=== PATIENT | female | born 1940 | race Caucasian/White ===

== ENCOUNTER 2017-04-02 05:53 | Inpatient (IN) ==
[2017-04-02] MEDS ORDERED: 0.9 % Sodium Chloride 1,000 ML IVC ONE (06:31)
--- NOTE | 2017-04-02 06:31 | Emergency Department Note ---
Disposition Clinical Impression: Hyponatremia Pneumonia Qualifiers: Pneumonia type: due to unspecified organism Laterality: left Lung location: unspecified part of lung Qualified Code(s): J18.9 - Pneumonia, unspecified organism Disposition: Admitted As Inpatient Condition: Fair General Adult HPI - General Chief complaint: ED General Medical Stated complaint: ill Time Seen by Provider: 04/02/17 06:19 Source: patient Mode of arrival: private vehicle Limitations: no limitations Nursing Notes Reviewed: Yes Vital Signs Reviewed: Yes - History of Present Illness Pt Subjective Complaint: cough, fever, diarrhea, malaise Onset (ago): week(s) (1) Location: other ("Everything hurts") Radiation: non-radiation Pain Severity: mild Pain Scale: 4 Quality: aching Consistency: constant Improves with: nothing Worsens with: nothing Associated symptoms: Reports: cough, malaise. Denies: confusion, chest pain, diaphoresis, nausea/vomiting Treatments Prior to Arrival: none - Related Data Home Medications Medication Instructions Recorded Confirmed Bisoprolol/HCTZ 5/6.25 [Ziac 1 tab PO DAILY 04/02/17 04/02/17 5/6.25] Ciprofloxacin HCl [Cipro] 250 mg PO DAILY 04/02/17 04/02/17 Gabapentin [Neurontin] 3 cap PO HS 04/02/17 04/02/17 Gabapentin [Neurontin] 100 mg PO QAM 04/02/17 04/02/17 HYDROcodone/Acet 5/325 mg [[place] 1 tab PO 6XD PRN 04/02/17 04/02/17 5-325 mg] Nitrofurantoin Monohyd/M-Cryst 100 mg PO BID 04/02/17 04/02/17 [Macrobid 100 mg Capsule] Oxybutynin Chloride [Ditropan Xl] 10 mg PO DAILY 04/02/17 04/02/17 Pioglitazone [Actos] 15 mg PO DAILY 04/02/17 04/02/17 Allergies Allergy/AdvReac Type Severity Reaction Status Date / Time Penicillins Allergy Itching Verified 04/02/17 05:54 All systems ED: reviewed and negative except as stated. Review of Systems: As Per HPI Constitutional: Reports: fever, chills, weakness. Denies: weight change, night sweats Eyes: Denies: eye pain, eye discharge, vision change ENT ED: Denies: ear pain, throat pain, congestion, dysphagia Cardiovascular: Reports: dyspnea on exertion. Denies: chest pain, palpitations , orthopnea, edema, syncope Respiratory: Reports: as per HPI, cough, wheezes, sputum production. Denies: dyspnea, hemoptysis, stridor Gastrointestinal: Reports: diarrhea (once or twice daily - no blood, no melena) . Denies: abdominal pain, nausea, vomiting Genitourinary: Denies: urgency, dysuria, frequency, hematuria Musculoskeletal: Reports: as per HPI, arthralgia Integumentary: Denies: rash Neurological: Reports: as per HPI, headache (dull, frontal, non-radiating, not first headache of life, similar to other headaches, gradual in onset.). Denies : weakness, numbness, paresthesias, confusion, abnormal gait, vertigo Hematological/Lymphatic: Denies: easy bleeding, easy bruising Past Medical History - Past Medical History Attestation: Yes The following information was validated with the patient. Source: patient Medical history: Reports: diabetes, hyperlipidemia, hypertension Surgical history: Reports: non-contributory Psychiatric history: Reports: no psych history - Social History Smoking Status: Former smoker Smokeless Tobacco Status: No Alcohol use: Reports: none Drug use: Reports: none Physical Exam - General Limitations: no limitations General appearance: alert, in no apparent distress - Head Head exam: atraumatic, normocephalic, normal inspection - Eye Eye exam: Present: normal appearance, PERRL. Absent: scleral icterus, conjunctival injection, periorbital swelling - ENT ENT exam: mucous membranes dry - Neck Neck exam: Present: normal inspection, full ROM, trachea midline. Absent: meningismus - Chest Chest inspection: Present: normal inspection - Respiratory Respiratory exam: Present: wheezes. Absent: respiratory distress, stridor, accessory muscle use, prolonged expiratory phase - Expanded Respiratory Exam Location: wheezes: Left, Right, Upper, decreased breath sounds: Upper, Left, Right - Cardiovascular Cardiovascular exam: Present: regular rate, normal rhythm, normal heart sounds - Extremities Exam Extremities exam: Present: normal inspection, full ROM, normal capillary refill. Absent: pedal edema - Expanded Lower Extremity Exam Gait: observed and normal - Back Exam Back exam: Present: normal inspection - Neurological Exam Neurological exam: Present: alert, oriented X3, CN II-XII intact, normal gait - Psychiatric Psychiatric exam: Present: normal affect, normal mood - Skin Skin exam: Present: warm, dry, intact, normal color Course Course Narrative: PAtient presents from the floor as she has been staying with her . He was admitted last week for complications of the flu. She states that she has had fever, cough and has been feeling poorly since last . She denies chest pain, hemoptysis, rash, vomiting or abdominal pain. She appears uncomfortable but non-toxic. BP is low normal. Heart rate high normal. She is hypoxic on room air at 92%. CXR shows retro-cardiac abnormality concerning for pneumonia. Patient has been staying here with her but has not been in a hospital as a patient in the last 3 months. She has not had IV ABX recently. She has a normal lactate, but has been tachy - up to 103, and hypotensive 98 systolic. She also has an elevated WBC count. Will admit. ABX ordered. Vital Signs Temperature 99.6 F 04/02/17 05:56 Pulse Rate 96 04/02/17 05:56 Respiratory Rate 16 04/02/17 05:56 Blood Pressure 100/54 04/02/17 05:56 O2 Sat by Pulse Oximetry 92 04/02/17 05:56 Temperature 97.6 F 04/02/17 16:31 Pulse Rate 64 04/02/17 16:31 Respiratory Rate 15 04/02/17 16:31 Blood Pressure 104/69 04/02/17 16:31 O2 Sat by Pulse Oximetry 92 04/02/17 16:31 Oxygen Delivery Oxygen Delivery Nasal Cannula Medical Decision Making - Medical Records Medical records reviewed: Yes I reviewed the patient's medical records. - Lab Data Lab results reviewed: Yes I reviewed the patient's lab results. Lab results narrative: Laboratory Last Values WBC 13.5 K/mcL (4.3-11.1) H 04/02/17 06:43 RBC 3.62 M/mcL (3.82-4.97) L 04/02/17 06:43 Hgb 11.8 g/dL (11.5-15.4) 04/02/17 06:43 Hct 34.4 % (35.3-44.9) L 04/02/17 06:43 MCV 95.0 fL (83.0-100.0) 04/02/17 06:43 MCH 32.6 pg (28.0-33.3) 04/02/17 06:43 MCHC 34.3 g/dL (31.6-35.5) 04/02/17 06:43 RDW 13.0 % (11.5-14.5) 04/02/17 06:43 Plt Count 113 K/mcL (140-400) L 04/02/17 06:43 MPV 9.3 fL (9.4-12.4) L 04/02/17 06:43 Immature Gran % 0.7 % (0-4) 04/02/17 06:43 Seg Neutrophils % 85.0 % 04/02/17 06:43 Lymphocytes % 5.0 % 04/02/17 06:43 Monocytes % 9.1 % 04/02/17 06:43 Eosinophils % 0.0 % 04/02/17 06:43 Basophils % 0.2 % 04/02/17 06:43 Neutrophils # 11.4 K/mcL (1.6-8.9) H 04/02/17 06:43 Lymphocytes # 0.7 K/mcL (0.6-4.6) 04/02/17 06:43 Monocytes # 1.2 K/mcL (0.0-1.3) 04/02/17 06:43 Eosinophils # 0.0 K/mcL (0.0-0.6) 04/02/17 06:43 Basophils # 0.0 K/mcL (0.0-0.2) 04/02/17 06:43 Sodium 132 mEq/L (136-145) L 04/02/17 06:43 Potassium 3.3 mEq/L (3.5-5.1) L 04/02/17 06:43 Chloride 98 mEq/L (98-107) 04/02/17 06:43 Carbon Dioxide 25 mEq/L (23-29) 04/02/17 06:43 BUN 19 mg/dL (8-23) 04/02/17 06:43 Creatinine 1.14 mg/dL (0.60-1.20) 04/02/17 06:43 Est GFR ( Amer) 56 (> 60) L 04/02/17 06:43 Est GFR (Non-Af Amer) 46 (> 60) L 04/02/17 06:43 BUN/Creatinine Ratio 17 (6-26) 04/02/17 06:43 Glucose 236 mg/dL (70-105) H 04/02/17 06:43 Calculated Osmolality 284 (280-300) 04/02/17 06:43 Lactic Acid 1.3 mmol/L (0.5-2.2) 04/02/17 06:43 Calcium 8.6 mg/dL (8.6-10.3) 04/02/17 06:43 Urine Color Yellow (Yellow) 04/02/17 07:02 Urine Clarity Cloudy (Clear) A 04/02/17 07:02 Urine pH 6.0 pH Units (5.0-8.0) 04/02/17 07:02 Ur Specific [place] 1.018 (1.010-1.025) 04/02/17 07:02 Urine Protein 100 mg/dL (Neg-Trace) H 04/02/17 07:02 Urine Glucose (UA) Normal mg/dL (Normal) 04/02/17 07:02 Urine Ketones Negative mg/dL (Negative) 04/02/17 07:02 Urine Blood Large (Negative) H 04/02/17 07:02 Urine Nitrite Negative (Negative) 04/02/17 07:02 Urine Bilirubin Negative (Negative) 04/02/17 07:02 Urine Urobilinogen Normal mg/dL (Normal) 04/02/17 07:02 Ur Leukocyte Esterase Large (Negative) H 04/02/17 07:02 Urine Microscopic RBC 15-30 per hpf (0-3) H 04/02/17 07:02 Urine Microscopic WBC TNTC per hpf (0-3) H 04/02/17 07:02 Ur Squamous Epith Cells Many per lpf (None-Few) H 04/02/17 07:02 Urine Bacteria Few per hpf (None-Few) 04/02/17 07:02 Hyaline Casts None Seen per lpf (None-Few) 04/02/17 07:02 Ur Culture Indicated? NO. (NO) 04/02/17 07:02 Result diagrams: 04/02/17 06:43 04/02/17 06:43 Lab Results 04/02/17 04/02/17 04/02/17 Range/Units 06:43 06:43 06:43 WBC 13.5 H (4.3-11.1) K/mcL RBC 3.62 L (3.82-4.97) M/mcL Hgb 11.8 (11.5-15.4) g/dL Hct 34.4 L (35.3-44.9) % MCV 95.0 (83.0-100.0) fL MCH 32.6 (28.0-33.3) pg MCHC 34.3 (31.6-35.5) g/dL RDW 13.0 (11.5-14.5) % Plt Count 113 L (140-400) K/mcL MPV 9.3 L (9.4-12.4) fL Immature Gran % 0.7 (0-4) % Seg Neutrophils % 85.0 % Lymphocytes % 5.0 % Monocytes % 9.1 % Eosinophils % 0.0 % Basophils % 0.2 % Neutrophils # 11.4 H (1.6-8.9) K/mcL Lymphocytes # 0.7 (0.6-4.6) K/mcL Monocytes # 1.2 (0.0-1.3) K/mcL Eosinophils # 0.0 (0.0-0.6) K/mcL Basophils # 0.0 (0.0-0.2) K/mcL Sodium 132 L (136-145) mEq/L Potassium 3.3 L (3.5-5.1) mEq/L Chloride 98 (98-107) mEq/L Carbon Dioxide 25 (23-29) mEq/L BUN 19 (8-23) mg/dL Creatinine 1.14 (0.60-1.20) mg/dL Est GFR ( Amer) 56 L (> 60) Est GFR (Non-Af Amer) 46 L (> 60) BUN/Creatinine Ratio 17 (6-26) Glucose 236 H (70-105) mg/dL Calculated Osmolality 284 (280-300) Lactic Acid 1.3 (0.5-2.2) mmol/L Calcium 8.6 (8.6-10.3) mg/dL Urine Color (Yellow) Urine Clarity (Clear) Urine pH (5.0-8.0) pH Units Ur Specific [place] (1.010-1.025) Urine Protein (Neg-Trace) mg/dL Urine Glucose (UA) (Normal) mg/dL Urine Ketones (Negative) mg/dL Urine Blood (Negative) Urine Nitrite (Negative) Urine Bilirubin (Negative) Urine Urobilinogen (Normal) mg/dL Ur Leukocyte Esterase (Negative) Urine Microscopic RBC (0-3) per hpf Urine Microscopic WBC (0-3) per hpf Ur Squamous Epith Cells (None-Few) per lpf Urine Bacteria (None-Few) per hpf Hyaline Casts (None-Few) per lpf Ur Culture Indicated? (NO) 04/02/17 Range/Units 07:02 WBC (4.3-11.1) K/mcL RBC (3.82-4.97) M/mcL Hgb (11.5-15.4) g/dL Hct (35.3-44.9) % MCV (83.0-100.0) fL MCH (28.0-33.3) pg MCHC (31.6-35.5) g/dL RDW (11.5-14.5) % Plt Count (140-400) K/mcL MPV (9.4-12.4) fL Immature Gran % (0-4) % Seg Neutrophils % % Lymphocytes % % Monocytes % % Eosinophils % % Basophils % % Neutrophils # (1.6-8.9) K/mcL Lymphocytes # (0.6-4.6) K/mcL Monocytes # (0.0-1.3) K/mcL Eosinophils # (0.0-0.6) K/mcL Basophils # (0.0-0.2) K/mcL Sodium (136-145) mEq/L Potassium (3.5-5.1) mEq/L Chloride (98-107) mEq/L Carbon Dioxide (23-29) mEq/L BUN (8-23) mg/dL Creatinine (0.60-1.20) mg/dL Est GFR ( Amer) (> 60) Est GFR (Non-Af Amer) (> 60) BUN/Creatinine Ratio (6-26) Glucose (70-105) mg/dL Calculated Osmolality (280-300) Lactic Acid (0.5-2.2) mmol/L Calcium (8.6-10.3) mg/dL Urine Color Yellow (Yellow) Urine Clarity Cloudy A (Clear) Urine pH 6.0 (5.0-8.0) pH Units Ur Specific [place] 1.018 (1.010-1.025) Urine Protein 100 H (Neg-Trace) mg/dL Urine Glucose (UA) Normal (Normal) mg/dL Urine Ketones Negative (Negative) mg/dL Urine Blood Large H (Negative) Urine Nitrite Negative (Negative) Urine Bilirubin Negative (Negative) Urine Urobilinogen Normal (Normal) mg/dL Ur Leukocyte Esterase Large H (Negative) Urine Microscopic RBC 15-30 H (0-3) per hpf Urine Microscopic WBC TNTC H (0-3) per hpf Ur Squamous Epith Cells Many H (None-Few) per lpf Urine Bacteria Few (None-Few) per hpf Hyaline Casts None Seen (None-Few) per lpf Ur Culture Indicated? NO. (NO) - Radiology Data Radiology results reviewed: Yes I reviewed the patient's radiology results. Chest X-Ray 04/02/17 06:32 IMPRESSION: 1. Retrocardiac opacity. In the proper clinical setting, this may represent pneumonia. 2. Mild enlargement of the cardiac silhouette. D/ / Frederick Valenzuela MD / Frederick Valenzuela MD Interpreting Provider: Frederick Valenzuela MD - EKG Data EKG #1 EKG attestation: Yes I reviewed and interpreted this EKG. EKG shows normal: sinus rhythm Rate: normal Rhythm: PAC's Voltage: increased voltage throughout, c/w LVH When compared to previous EKG there are: previous EKG unavailable Interpretation: nonspecific ST-T wave changes
[2017-04-02 06:52] LABS: Basophils % 0.2 %; Hematocrit 34.4 % (35.3-44.9); Hemoglobin 11.8 g/dL (11.5-15.4); Immature Granulocytes % 0.7 % (0-4); Lymphocytes # 0.7 K/mcL (0.6-4.6); Mean Corpuscular HGB Conc 34.3 g/dL (31.6-35.5); Mean Corpuscular Hemoglobin 32.6 pg (28.0-33.3); Mean Platelet Volume 9.3 fL (9.4-12.4); Monocytes # 1.2 K/mcL (0.0-1.3); Monocytes % 9.1 %; Neutrophils # 11.4 K/mcL (1.6-8.9); Platelet Count 113 K/mcL (140-400); Red Blood Count 3.62 M/mcL (3.82-4.97)
[2017-04-02] MEDS ORDERED: Ipratropium/Albuterol Neb 3 ML IH ONE (06:54)
[2017-04-02 07:05] LABS: Calcium 8.6 mg/dL (8.6-10.3); Potassium 3.3 mEq/L (3.5-5.1)
[2017-04-02 07:21] LABS: Bilirubin,Urine Negative (Negative); Blood,Urine Large (Negative); Clarity,Urine Cloudy (Clear); Color,Urine Yellow (Yellow); Glucose,Urine (UA) Normal (Normal); Ketones,Urine Negative (Negative); Leukocyte Esterase,Urine Large (Negative); Nitrite,Urine Negative (Negative); Protein,Urine 100 mg/dL (Neg-Trace); Specific Gravity,Urine 1.018 (1.010-1.025); Urobilinogen,Urine Normal (Normal)
[2017-04-02 07:25] LABS: Bacteria,Urine Few per hpf (None-Few); Hyaline Casts,Urine None Seen per lpf (None-Few); RBC,Urine 15-30 per hpf (0-3); Squamous Epithelial Cell,Urine Many per lpf (None-Few); WBC,Urine TNTC per hpf (0-3)
[2017-04-02] MEDS ORDERED: Vancomycin 1,250 MG in D5% in Water 250 ML IVPB ONE (08:03)
[2017-04-02] MEDS ORDERED: Levofloxacin 750 MG/150 ML 750 MG/150 ML BAG IVPB ONE (08:03)
[2017-04-02] MEDS ORDERED: Cefepime HCl 2,000 MG in D5% in Water (Mini-Bag+) 100 ML IVPB ONE (08:16)
[2017-04-02] MEDS ORDERED: Naloxone 0.4 MG/ML INJ IVP PRN (08:29)
[2017-04-02] MEDS ORDERED: Ondansetron 4 MG/2 ML VIAL IVP PRN (08:29)
[2017-04-02] MEDS ORDERED: Acetaminophen 325 MG TABLET PO PRN (08:29)
[2017-04-02] MEDS ORDERED: 0.9 % Sodium Chloride 1,000 ML IVC SCH (08:30)
[2017-04-02] MEDS ORDERED: Cefepime HCl 2,000 MG in Water for inj. (sterile) 20 ML 20 ML IVPB ONE (08:30)
[2017-04-02] MEDS ORDERED: Dextrose Gel 15 GM/37.5 ML TUBE PO PRN ×2 (08:31)
[2017-04-02] MEDS ORDERED: *HR* Dextrose 50 % in Water (Syg) 50 ML SYRINGE IVP PRN (08:31)
[2017-04-02] MEDS ORDERED: D5% in Water 1,000 ML IVC PRN (08:31)
--- NOTE | 2017-04-02 08:56 | Internal Med History&Physical ---
Date of Encounter: 04/02/17 Time of Encounter: 08:53 Assessment and Plan (1) Sepsis Current visit: Yes Status: Acute Patient presented with tachycardia, tachypnea, leukocytosis of 13.5, and a chest x-ray with retrocardiac opacity. Suggestive of pneumonia. No personal recent hospitalization in the past 90 days, patient lives at home. She has been visiting her who is currently hospitalized at this facility. We will treat as community-acquired pneumonia. Source of sepsis is pneumonia for now. Urine analysis is dirty, has been sent for culture, will follow. Follow blood culture. Send sputum culture Send Legionella antigen and streptococcal antigen Patient received vancomycin in the ER. We will continue with Levaquin 750 mg intravenously daily for now. Lactic acid is normal on blood pressure is within normal limits. Continue support with gentle hydration. Qualifiers: Sepsis type: sepsis due to unspecified organism Qualified Code(s): A41.9 - Sepsis, unspecified organism (2) Pneumonia Current visit: Yes Status: Acute As above. Qualifiers: Pneumonia type: due to unspecified organism Laterality: left Lung location: unspecified part of lung Qualified Code(s): J18.9 - Pneumonia, unspecified organism (3) HTN (hypertension) Current visit: Yes Status: Chronic Resume home medications. Qualifiers: Hypertension type: essential hypertension Qualified Code(s): I10 - Essential (primary) hypertension (4) Diabetes mellitus Current visit: Yes Status: Chronic Insulin naive. On oral agents at home. Diabetic diet. Check fingersticks before meals and at bedtime. Sliding scale insulin. Goal Fingerstick is 140-180. Check A1c with morning labs. 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 (6) Hyponatremia Current visit: Yes Status: Acute Pseudohyponatremia. Corrected sodium is 131 for hyper glycemia.. This is patient's baseline on the trend of her chem. Continue to monitor. (7) Diarrhea Current visit: Yes Status: Acute Send stool panel Qualifiers: Diarrhea type: unspecified type Qualified Code(s): R19.7 - Diarrhea, unspecified (8) Hypokalemia Current visit: Yes Status: Acute Possibly due to GI loss from diarrhea, and diuretic use at home. Replaced orally. Continue to monitor. Internal Medicine - H&P: HPI Chief complaint: Diarrhea, cough Admitted From: Home Plans for Post Hospital Care: Home History of present illness: Ms. Cordero is a 76 year old female with medical history of hypertension, and diabetes mellitus, degenerative joint disease and neuropathy who presented with complaints of cough and weakness for the past 1 week, and diarrhea of 2 days. The patient was in her usual state of health until she started taking care of her who is currently hospitalized at this facility and developed weakness and tiredness over the past week, she also reports cough productive of sputum, associated with mildly. No fever or chills. No sick contacts. She also reports associated bilateral ear pain or ear discharge. No sore throat. No rhinorrhea. No recent travels. She denies lower extremity swelling, no chest pain. She developed diarrhea 2 days ago started to be watery nonbloody nonmucoid. She has had 3 episodes of diarrhea in the past 24 hours. She denies nausea vomiting. She also feels she might have a urinary tract infection. She has no neurologic symptoms at this time. No sore throat. No skin rash. Past Med Surg Social Fam HX - Past Medical History Medical history: diabetes, hyperlipidemia, hypertension Psychiatric history: no psych history - Social History Smoking Status: Former smoker Smokeless Tobacco Status: No Alcohol use: none Drug use: none Internal Medicine - H&P: Meds Bisoprolol/HCTZ 5/6.25 [Ziac 5/6.25] 1 tab PO DAILY 04/02/17 [History] Ciprofloxacin HCl [Cipro] 250 mg PO DAILY 04/02/17 [History] Gabapentin [Gralise] 900 mg PO HS 04/02/17 [History] Gabapentin [Neurontin] 300 mg PO BID 04/02/17 [History] HYDROcodone/Acet 5/325 mg [[place] 5-325 mg] 1 tab PO 6XD PRN 04/02/17 [History] Nitrofurantoin Monohyd/M-Cryst [Macrobid 100 mg Capsule] 100 mg PO BID 04/02/17 [History] Oxybutynin Chloride [Ditropan Xl] 10 mg PO DAILY 04/02/17 [History] Pioglitazone [Actos] 15 mg PO DAILY 04/02/17 [History] 3 Allergy/AdvReac Type Severity Reaction Status Date / Time Penicillins Allergy Itching Verified 04/02/17 05:54 All Systems PM: A 10-system review of systems was performed and is negative for pertinent findings except as documented above in the HPI. - Constitutional Constitutional: fatigue, lethargy, malaise - EENT Ears: ear pain Nose, mouth and throat: no dysphagia, no nasal discharge, no neck pain, no sore throat - Cardiovascular Cardiovascular ROS IM: no chest pain, no diaphoresis, no dyspnea, no lightheadedness, no palpitations, no syncope - Respiratory Respiratory: cough, dyspnea, chest congestion, no hemoptysis, no pain on inspiration - Gastrointestinal Gastrointestinal: change in bowel habits, diarrhea, no hematemesis, no hematochezia, no nausea, no vomiting - Genitourinary Genitourinary: no change in urinary stream, no dysuria, no flank pain, no hematuria - Musculoskeletal Musculoskeletal ROS IM: back pain - Integumentary Integumentary IM: no rash, no unusual bruising - Neurological Neurological ROS: no confusion, no convulsions, no focal weakness, no numbness, no tingling, no tremor(s) - Constitutional Vitals: Temp Pulse Resp BP Pulse Ox 99.6 F 101 20 99/55 95 04/02/17 05:56 04/02/17 08:07 04/02/17 08:07 04/02/17 08:07 04/02/17 08:07 General appearance: Present: A&O X 3, morbidly obese, no acute distress - Head Head exam: Present: atraumatic, normocephalic - Eye Eye exam: Present: PERRL, conjuntiva pink, sclera anicteric Pupils: Present: PERRL - Neck Neck exam general surgery: Present: supple, trachea midline. Absent: lymphadenopathy - Respiratory Respiratory exam: Present: rhonchi, tachypnea. Absent: wheezes - Cardiovascular Cardiovascular exam: Present: +S1, +S2, tachycardia. Absent: systolic murmur - GI/Abdominal GI/Abdominal exam: Present: normal bowel sounds, soft, no peritoneal signs. Absent: distended, tenderness Additional comments: obese, scar - Extremities Exam Extremities exam: Present: warm, radial pulses palpable and symmetrical. Absent : calf tenderness, cyanotic, pedal edema - Neurological Exam Neurological exam: Present: alert, CN II-XII intact, oriented X3, no focal deficits. Absent: pronater drift, facial droop, speech deficit - Skin Skin exam: Present: dry, intact Internal Med - H&P Results - Labs CBC & Chem 7: 04/02/17 06:43 04/02/17 06:43
--- NOTE | 2017-04-02 09:00 | Emergency Department Note ---
START Narrative - START START: I examined this patient and my medical decision-making was reviewed with the RESEARCH ANIMAL ATTENDANT/PA/Advanced Practice Nurse/Resident Physician. I agree with the documented findings, disposition and treatment plan as described except to the extent set forth below. I did see the patient and spoke with her and she does not have confusion but does have some mild hypotension as well as tachycardia and x-ray suggestive of pneumonia and she will be treated for a hospital associated pneumonia with cefepime and vancomycin and admitted. She is mentating well. She is not tachypneic or in any respiratory distress at this time. 0900
[2017-04-02] MEDS ORDERED: Levofloxacin 750 MG/150 ML 750 MG/150 ML BAG IVPB SCH (13:00)
[2017-04-02] MEDS: Gabapentin 300 MG CAPSULE PO SCH ×2 (13:29→20:24)
[2017-04-02] MEDS: Insulin LISPRO 300 UNITS/3 ML VIAL SQ SCH ×3 (13:30→20:33)
[2017-04-02] MEDS: *HR* HYDROcodone/Acet 5/325 mg TABLET PO PRN (14:09)
[2017-04-02] MEDS: Bisoprolol/HCTZ 5/6.25 TABLET PO SCH (15:43)
--- NOTE | 2017-04-02 18:33 | Electrocardiograph Report ---
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
[2017-04-02] MEDS ORDERED: Insulin DETEMIR 100 UNIT/ML X5UNITS SQ SCH (21:00)
[2017-04-03 04:05] LABS: Basophils % 0.2 %; Eosinophils % 0.1 %; Hematocrit 31.9 % (35.3-44.9); Hemoglobin 10.8 g/dL (11.5-15.4); Lymphocytes # 1.1 K/mcL (0.6-4.6); Lymphocytes % 8.2 %; Mean Corpuscular HGB Conc 33.9 g/dL (31.6-35.5); Mean Corpuscular Hemoglobin 32.1 pg (28.0-33.3); Mean Corpuscular Volume 94.9 fL (83.0-100.0); Mean Platelet Volume 9.9 fL (9.4-12.4); Monocytes # 0.8 K/mcL (0.0-1.3); Monocytes % 5.6 %; Neutrophils # 11.3 K/mcL (1.6-8.9); Platelet Count 106 K/mcL (140-400); Red Blood Count 3.36 M/mcL (3.82-4.97); Red Cell Distribution Width 13.1 % (11.5-14.5); Segmented Neutrophils % 84.9 %
[2017-04-03] MEDS: *HR* Enoxaparin 30 MG/0.3 ML SYRINGE SQ SCH (04:13)
[2017-04-03] MEDS: *HR* HYDROcodone/Acet 5/325 mg TABLET PO PRN ×3 (04:13→19:38)
[2017-04-03 04:14] LABS: Hemoglobin A1C 5.9 %
[2017-04-03 04:29] LABS: Calcium 8.4 mg/dL (8.6-10.3); Potassium 3.7 mEq/L (3.5-5.1)
[2017-04-03] MEDS: Gabapentin 300 MG CAPSULE PO SCH ×2 (08:15→20:52)
[2017-04-03] MEDS: Insulin LISPRO 300 UNITS/3 ML VIAL SQ SCH ×4 (08:21→19:38)
--- NOTE | 2017-04-03 09:32 | Internal Med Progress Note ---
<HareGlen - Last Filed: 04/03/17 13:44> Date of Encounter: 04/03/17 Time of Encounter: 09:31 - Assessment and plan (1) Sepsis Current Visit: Yes Status: Acute Assessment and plan: HR: 91, Resp: 16, WBC: 13.6 Treating as CAP - Levaquin 750mg day 2 Anticipate DC tomorrow with PO Levaquin Cultures pending Qualifiers: Sepsis type: sepsis due to unspecified organism Qualified Code(s): A41.9 - Sepsis, unspecified organism (2) Pneumonia Current Visit: Yes Status: Acute Assessment and plan: Abx as above with Levaquin Qualifiers: Pneumonia type: due to unspecified organism Laterality: left Lung location: unspecified part of lung Qualified Code(s): J18.9 - Pneumonia, unspecified organism (3) HTN (hypertension) Current Visit: Yes Status: Chronic Assessment and plan: Continue home meds with Ziac; BP stable Qualifiers: Hypertension type: essential hypertension Qualified Code(s): I10 - Essential (primary) hypertension (4) Diabetes mellitus Current Visit: Yes Status: Chronic Assessment and plan: Insulin naive. On oral agents at home. Diabetic diet. Check fingersticks before meals and at bedtime. Low dose sliding scale insulin. Goal Fingerstick is 140-180. A1c was 5.9 checked today Qualifiers: Diabetes mellitus type: type 2 Diabetes mellitus complication status: without complication Diabetes mellitus alf insulin use: without alf use Qualified Code(s): E11.9 - Type 2 diabetes mellitus without complications (5) Morbid obesity with BMI of 45.0-49.9, adult Current Visit: Yes Status: Chronic Assessment and plan: Patient education and lifestyle modification. (6) Hyponatremia Current Visit: Yes Status: Acute Assessment and plan: Na: 133 - mild and she appears euvolemic This is patient's baseline on the trend of her chem. Continue to monitor (7) Diarrhea Current Visit: Yes Status: Acute Assessment and plan: She is no longer having episodes of diarrhea over last 2 days Awaiting stool panel Qualifiers: Diarrhea type: unspecified type Qualified Code(s): R19.7 - Diarrhea, unspecified (8) Hypokalemia Current Visit: Yes Status: Resolved Assessment and plan: Resolved. K: 3.7 Replaced orally. Continue to monitor (9) DVT prophylaxis Current Visit: Yes Status: Acute Assessment and plan: Lovenox SQ - Subjective Interval history: Patient was seen and examined at beside. Patient is resting comfortably in bed. She states that she is feeling much better since she was admitted yesterday. She communicates that she would like to get out of the hospital as soon as possible as her is being transferred from [facility] to the ID, but she is agreeable to stay as long as is medically recommended. Denies chest pain, nausea , vomiting, diarrhea or fevers. - Constitutional Vitals: Temp Pulse Resp BP Pulse Ox 98.8 F 95 19 111/44 91 04/03/17 04:08 04/03/17 04:08 04/03/17 04:08 04/03/17 04:08 04/03/17 04:08 General appearance: Present: cooperative, A&O X 3, morbidly obese, pleasant, no acute distress - Head Head exam: Present: normal inspection - Eye Eye exam: Present: normal appearance - Neck Neck exam general surgery: Present: normal inspection - Respiratory Respiratory exam: Present: rhonchi (Best appreciated at [facility] ) - Cardiovascular Cardiovascular exam: Present: RRR - GI/Abdominal GI/Abdominal exam: Present: soft, no peritoneal signs. Absent: distended, firm , tenderness - Extremities Exam Extremities exam: Present: warm, radial pulses palpable and symmetrical. Absent : calf tenderness, cyanotic, pedal edema - Skin Skin exam: Present: normal color, warm Internal Medicine: Result - Labs CBC & Chem 7: 04/03/17 03:53 04/03/17 03:53 Labs: Short CBC 04/03/17 Range/Units 03:53 WBC 13.3 H (4.3-11.1) K/mcL Hgb 10.8 L (11.5-15.4) g/dL Hct 31.9 L (35.3-44.9) % Plt Count 106 L (140-400) K/mcL Neutrophils # 11.3 H (1.6-8.9) K/mcL BMP 04/03/17 03:53 Sodium 133 L Potassium 3.7 Chloride 101 Carbon Dioxide 26 BUN 19 Creatinine 1.10 Glucose 93 Calcium 8.4 L Consult Discharge Plan - Plan Referrals: Monty Sexton, [Primary Care Provider] - <Manas De Jesus - Last Filed: 04/03/17 14:18> Date of Encounter: 04/03/17 - Constitutional Vitals: Temp Pulse Resp BP Pulse Ox 98.7 F 87 16 112/55 91 04/03/17 10:00 04/03/17 10:00 04/03/17 10:00 04/03/17 10:00 04/03/17 10:00 Internal Medicine: Result - Labs CBC & Chem 7: 04/03/17 03:53 04/03/17 03:53 Labs: Short CBC 04/03/17 Range/Units 03:53 WBC 13.3 H (4.3-11.1) K/mcL Hgb 10.8 L (11.5-15.4) g/dL Hct 31.9 L (35.3-44.9) % Plt Count 106 L (140-400) K/mcL Neutrophils # 11.3 H (1.6-8.9) K/mcL BMP 04/03/17 03:53 Sodium 133 L Potassium 3.7 Chloride 101 Carbon Dioxide 26 BUN 19 Creatinine 1.10 Glucose 93 Calcium 8.4 L - Attending Attestation I personally interviewed and examined this patient. I agree with the findings, assessment, and plan of Dr. Hare, internal medicine resident. Patient is clinically improved. Currently on room air oxygen. She remains on Levaquin for pneumonia for which she will need complete a 5-7 day course. We will continue with Pulmicort toilet. Anticipate discharge later today or tomorrow pending her progress. Will increase activity and monitor oxygen saturation, assess the potential need for home oxygen.
[2017-04-03] MEDS: Bisoprolol/HCTZ 5/6.25 TABLET PO SCH (12:19)
[2017-04-04] MEDS: *HR* Enoxaparin 30 MG/0.3 ML SYRINGE SQ SCH (05:27)
[2017-04-04 06:40] LABS: Basophils % 0.2 %; Eosinophils # 0.1 K/mcL (0.0-0.6); Eosinophils % 0.8 %; Hematocrit 31.8 % (35.3-44.9); Hemoglobin 10.5 g/dL (11.5-15.4); Immature Granulocytes % 2.3 % (0-4); Lymphocytes % 7.8 %; Mean Corpuscular Hemoglobin 31.6 pg (28.0-33.3); Mean Corpuscular Volume 95.8 fL (83.0-100.0); Mean Platelet Volume 10.3 fL (9.4-12.4); Monocytes # 0.7 K/mcL (0.0-1.3); Monocytes % 5.4 %; Neutrophils # 10.2 K/mcL (1.6-8.9); Nucleated Red Blood Cells 0.2 /100 WBC (0); Platelet Count 124 K/mcL (140-400); Red Blood Count 3.32 M/mcL (3.82-4.97); Red Cell Distribution Width 13.1 % (11.5-14.5); Segmented Neutrophils % 83.5 %
[2017-04-04] MEDS: *HR* HYDROcodone/Acet 5/325 mg TABLET PO PRN ×2 (06:41→13:03)
[2017-04-04 07:02] VITALS: BP 140/57
[2017-04-04 07:09] LABS: Calcium 8.7 mg/dL (8.6-10.3); Potassium 3.4 mEq/L (3.5-5.1)
--- NOTE | 2017-04-04 09:01 | Discharge Summary ---
<Glen Hare - Last Filed: 04/04/17 11:41> Date of Encounter: 04/04/17 Time of Encounter: 08:59 - Discharge Diagnosis (1) Sepsis Priority: Primary Status: Acute Qualifiers: Sepsis type: sepsis due to unspecified organism Qualified Code(s): A41.9 - Sepsis, unspecified organism (2) Pneumonia Priority: Secondary Status: Acute Qualifiers: Pneumonia type: due to unspecified organism Laterality: left Lung location: unspecified part of lung Qualified Code(s): J18.9 - Pneumonia, unspecified organism (3) HTN (hypertension) Priority: Secondary Status: Chronic Qualifiers: Hypertension type: essential hypertension Qualified Code(s): I10 - Essential (primary) hypertension (4) Diabetes mellitus Priority: Secondary Status: Chronic Qualifiers: Diabetes mellitus type: type 2 Diabetes mellitus complication status: without complication Diabetes mellitus assisted insulin use: without assisted use Qualified Code(s): E11.9 - Type 2 diabetes mellitus without complications (5) Morbid obesity with BMI of 45.0-49.9, adult Priority: Secondary Status: Chronic (6) Hyponatremia Priority: Secondary Status: Acute (7) Diarrhea Priority: Secondary Status: Acute Qualifiers: Diarrhea type: unspecified type Qualified Code(s): R19.7 - Diarrhea, unspecified (8) Hypokalemia Priority: Secondary Status: Resolved (9) DVT prophylaxis Priority: Secondary Status: Acute - Discharge Medications Prescriptions: Guaifenesin [Mucinex] 600 mg PO BID PRN #20 tab.er.12h PRN Reason: Cough Levofloxacin [Levaquin] 750 mg PO DAILY #5 tablet Home Medications: Bisoprolol/HCTZ 5/6.25 [Ziac 5/6.25] 1 tab PO DAILY 04/02/17 [History] Ciprofloxacin HCl [Cipro] 250 mg PO DAILY 04/02/17 [History] Gabapentin [Neurontin] 3 cap PO HS 04/02/17 [History] Gabapentin [Neurontin] 100 mg PO QAM 04/02/17 [History] HYDROcodone/Acet 5/325 mg [[place] 5-325 mg] 1 tab PO 6XD PRN 04/02/17 [History] Nitrofurantoin Monohyd/M-Cryst [Macrobid 100 mg Capsule] 100 mg PO BID 04/02/17 [History] Oxybutynin Chloride [Ditropan Xl] 10 mg PO DAILY 04/02/17 [History] Pioglitazone [Actos] 15 mg PO DAILY 04/02/17 [History] Guaifenesin [Mucinex] 600 mg PO BID PRN #20 tab.er.12h 04/04/17 [Rx] Levofloxacin [Levaquin] 750 mg PO DAILY #5 tablet 04/04/17 [Rx] Allergies/Adverse Reactions: 3 Allergy/AdvReac Type Severity Reaction Status Date / Time Penicillins Allergy Itching Verified 04/02/17 05:54 Date of admission: 04/02/17 08:40 Primary care physician: Monty Sexton DO Discharging clinician: Glen Hare Anticipated date of discharge: 04/04/17 - Patient Status Disposition: Home, Self-Care Condition: Fair Overall status at discharge: patient is progressing back to baseline - Ambulatory Orders Ambulatory Orders: XR chest 2V [XR] Time Frame: 4 Weeks, Facility: [facility], Location: Radiology - Discharge Instructions Instructions: Guaifenesin (By mouth), Levofloxacin (By mouth), Sepsis (DC), Chronic Hypertension (DC), Pneumonia (DC) Follow Up With: Monty Sexton DO [Primary Care Provider] - (PLEASE CALL ON THURSDAY AND MAKE [facility] FOLLOW UP APPOINTMENT FOR 5-7 DAYS AFTER DISCHARGED HOME) Forms: ED Satisfaction Letter, Work/School Release Additional Instructions: Please follow up with your PCP within 1-2 weeks of discharge You did qualify for oxygen and your PCP may want to start this Take Levaquin the antibiotic for 5 more days and Mucinex as needed for cough Please obtain CXR in 4 weeks - Diet and Activity Activity: increase activity as tolerated Diet: diabetic diet Hospital course: Ms. Cordero is a 76 year old female who presented with sepsis secondary to community acquired pneumonia. Patient states she was in the hospital visiting her who is here, when she developed weakness and cough. She denies previous hospitalizations for pneumonia and had not been on antibiotics recently. Chest x-ray demonstrated retrocardiac opacity suggestive of pneumonia and she was started on IV Levaquin. She was also placed on submental oxygen and states her breathing improved significantly. She did qualify for home oxygen as she descended down to the 80s while walking off oxygen. However she declined a prescription for oxygen upon discharge, stating she was going to use her 's. She will be going back home with 5 more days of Levaquin to complete 1 week course for pneumonia. She was also given a prescription for his next help alleviate her cough. PA lateral chest x-ray has been ordered for 4 weeks after discharge. - Time Spent with Patient Total time spent providing and/or coordinating discharge services: Greater than 30 minutes - Constitutional Vitals: Temp Pulse Resp BP Pulse Ox 99 F 74 16 140/57 98 04/04/17 06:59 04/04/17 06:59 04/04/17 06:59 04/04/17 06:59 04/04/17 06:59 General appearance: Present: cooperative, A&O X 3, morbidly obese, pleasant, no acute distress - Head Head exam: Present: atraumatic, normocephalic - Eye Eye exam: Present: PERRL, conjuntiva pink, sclera anicteric - Neck Neck exam general surgery: Present: supple, trachea midline. Absent: lymphadenopathy - Respiratory Respiratory exam: Present: CTAB. Absent: accessory muscle use, rales, rhonchi, wheezes - Cardiovascular Cardiovascular exam: Present: RRR, +S1, +S2. Absent: diastolic murmur, gallop, rubs, systolic murmur - GI/Abdominal GI/Abdominal exam: Present: normal bowel sounds, soft, no peritoneal signs. Absent: distended, tenderness - Extremities Exam Extremities exam: Present: warm, radial pulses palpable and symmetrical. Absent : calf tenderness, cyanotic, pedal edema - Neurological Exam Neurological exam: Present: alert, no focal deficits. Absent: facial droop, speech deficit - Skin Skin exam: Present: dry, intact <Manas De Jesus - Last Filed: 04/04/17 14:21> Date of Encounter: 04/04/17 Date of admission: 04/02/17 08:40 Primary care physician: Monty Sexton DO [facility] course: Ms. Cordero is a 76 year old female - Time Spent with Patient Total time spent providing and/or coordinating discharge services: - Constitutional Vitals: Temp Pulse Resp BP Pulse Ox 99 F 74 16 140/57 95 04/04/17 06:59 04/04/17 06:59 04/04/17 06:59 04/04/17 06:59 01/27/18 10:00 - Attending Attestation I personally interviewed and examined this patient. I agree with the findings, assessment, and plan of Dr. Hare, internal medicine resident. Patient will complete antibiotics as directed likely acquired pneumonia. She will need a follow-up chest x-ray in 4 weeks. Patient was recommended for home oxygen which she refused. Discussed the importance of home oxygen, however patient is not interested at this time. She does say her has oxygen she might use this. We did recommend close follow-up with her primary care provider. 33 minutes spent on discharge and coordination of care condition at discharge stable
[2017-04-04] MEDS: Insulin LISPRO 300 UNITS/3 ML VIAL SQ SCH (09:06)
[2017-04-04] MEDS: Bisoprolol/HCTZ 5/6.25 TABLET PO SCH (09:07)
[2017-04-04] MEDS: Gabapentin 300 MG CAPSULE PO SCH (09:07)
== END 2017-04-04 14:32 | disposition home or self-care (01) | DRG 871 ==
LOC: EMEROO 05:53 → 2NENU 05:53
PROVIDERS: ADMIT Internal Medicine; ATTEND Internal Medicine